=== PATIENT | female | born 1960 ===

== ENCOUNTER 2023-02-15 10:04 | Inpatient (IN) | payer OTHER ==
[~2023-02-15] VITALS: Ht 157.5 cm; Wt 64.0 kg
[2023-02-19] MEDS ORDERED: SERTRALINE HCL50 MG (07:53)
== END 2023-02-21 15:32 | disposition home or self-care (01) | DRG 331 ==
LOC: SURG 02-19 07:00 → O/R 02-19 07:24 → SURG 02-19 07:24 → O/R 02-19 14:50 → OB/GYN 02-19 15:45 → SURG 02-19 16:54
PROVIDERS: ADMIT Specialist; ATTEND Specialist
PROC: 0DBP4ZZ Excision of Rectum, Percutaneous Endoscopic Approach (ICD-10-PCS; 2023-02-19)
PROC: 0DTN4ZZ Resection of Sigmoid Colon, Percutaneous Endoscopic Approach (ICD-10-PCS; principal; 2023-02-19 07:00)
DX: C18.7 Malignant neoplasm of sigmoid colon (principal)